=== PATIENT | male | born 1950 | race Caucasian/White ===

== ENCOUNTER 2016-04-28 12:47 | Emergency (ER) | payer SELFPAY | END 2016-04-28 13:20 | disposition left against medical advice (07) | LOC: ED 12:47 | DX: Z53.21 Procedure and treatment not carried out due to patient leaving prior to being seen by health care provider (principal) ==

== ENCOUNTER 2016-06-01 06:57 | Inpatient (IN) | payer OTHER ==
[2016-06-01] MEDS ORDERED: NACL BACTERIOSTATIC INFILTRATI ONE (08:24)
--- NOTE | 2016-06-01 08:29 | Anesthesia Day of Surgery ---
Anesthesia Day of Surgery - Day of Surgery Patient Examined: Yes Patient H&P Reviewed: Yes Patient is NPO: Yes
--- NOTE | 2016-06-01 08:33 | Anesthesia Consultation ---
Anesthesia Consult and Med Hx Date of service: 06/01/16 - Airway Anesthetic Teeth Evaluation: Good, Chipped ROM Head & Neck: Adequate Mental/Hyoid Distance: Adequate Mallampati Class: Class II Intubation Access Assessment: Probably Good - Pulmonary Exam CTA: Yes - Cardiac Exam Cardiac Exam: RRR - Pre-Operative Health Status ASA Pre-Surgery Classification: ASA2 Proposed Anesthetic Plan: General - Pre-Anesthesia Comment Pre-Anesthesia Comments: Patient with elevated BP not diagnosed. Patient reports he has not seen a primary care physician in 5 years, he is scheduled to do his physical in June 2016. Dr. Mendenhall is aware, he will keep patient overnight and will consult the hospitalist. Patient refuses blood transfusion. - Pulmonary Hx Smoking: No - Cardiovascular System Hx Hypertension: Yes (ELEVATES WITH STRESS/ NOT DIAGNOSED) - Central Nervous System Hx Psychiatric Problems: No - Endocrine Hx Renal Disease: No (BPH) - Other Systems Hx Alcohol Use: No Hx Substance Use: No Hx Cancer: No
[2016-06-01] MEDS ORDERED: ZOFRAN IV PRN ×2 (08:34→11:51)
[2016-06-01] MEDS ORDERED: DILAUDID IV PRN (08:34)
[2016-06-01 08:45] LABS: Basophils % (Auto) 1.2 % (0.0-1.8); Eosinophils % (Auto) 0.9 % (0.0-4.3); Hematocrit 31.4 % (35.5-45.6); Hemoglobin 10.6 gm/dl (11.8-15.2); Mean Corpuscular HGB Conc 34 % (32-34); Mean Corpuscular Hemoglobin 30 pg (28-32); Mean Corpuscular Volume 88 fl (84-94); Platelet Count 525 K/mm3 (140-440); Red Blood Count 3.56 M/mm3 (3.65-5.03); Red Cell Distribution Width 14.7 % (13.2-15.2); White Blood Count 11.3 K/mm3 (4.5-11.0)
[2016-06-01] MEDS ORDERED: VERSED IV NR (09:00)
[2016-06-01] MEDS ORDERED: PEPCID IV NR (09:00)
[2016-06-01] MEDS: APRESOLINE IV PRN ×2 (09:00→12:00)
[2016-06-01] MEDS ORDERED: NACL 0.9% 1000 ML 1,000 ML IV SCH (09:00)
[2016-06-01 09:08] LABS: BUN/Creatinine Ratio 16.45; Calcium 9.1 mg/dL (8.4-10.2); Chloride 105.1 mmol/L (98-107); Potassium 4.4 mmol/L (3.6-5.0)
[2016-06-01] MEDS ORDERED: NACL 0.9% 500 ML 500 ML IV ONE ×3 (09:09→10:59)
[2016-06-01] MEDS ORDERED: GARAMYCIN/NS 120MG/100ML 120 MG/100 ML BAG IV NR (09:15)
[2016-06-01] MEDS ORDERED: ANCEF/STERILE WATER 2 GM/20 ML IV NR (09:15)
[2016-06-01] MEDS ORDERED: DIPRIVAN 10 MG/ML IV ONE (09:44)
[2016-06-01] MEDS ORDERED: SUBLIMAZE ONE (09:45)
[2016-06-01] MEDS ORDERED: XYLOCAINE MPF 2% ONE (09:45)
[2016-06-01] MEDS ORDERED: NORMODYNE IV ONE (10:02)
[2016-06-01] MEDS ORDERED: ZOFRAN ONE ×2 (10:16→11:19)
[2016-06-01] MEDS ORDERED: SORBITOL-MANNITOL IRRIG IR ONE ×3 (10:27)
[2016-06-01] MEDS ORDERED: WATER FOR IRRIG STERILE IR ONE ×2 (10:27)
[2016-06-01] MEDS ORDERED: LASIX ONE (11:19)
[2016-06-01] MEDS ORDERED: NORCO 5/325 PO PRN (11:51)
[2016-06-01] MEDS ORDERED: TYLENOL PO PRN (11:51)
[2016-06-01] MEDS ORDERED: MORPHINE IV PRN (11:51)
[2016-06-01] MEDS ORDERED: NARCAN 0.4 MG/1 ML IV PRN (11:51)
[2016-06-01] MEDS ORDERED: AMBIEN PO PRN (11:51)
--- NOTE | 2016-06-01 11:51 | Post Operative Note ---
Pre-op diagnosis: AUR Post-op diagnosis: same Findings: large vascular gland Procedure: cuysto turp Anesthesia: GETA Surgeon: JOHANN WEI Estimated blood loss: other (150) Pathology: list (chips) Specimen disposition: to lab Condition: stable Disposition: PACU
[2016-06-01] MEDS ORDERED: D5W/0.45% NACL/KCL 20 MEQ 20 MEQ/1,000 ML BAG IV SCH (12:00)
[2016-06-01] MEDS: NACL 0.9% IR SCH ×8 (12:30→14:01)
--- NOTE | 2016-06-01 12:36 | Post Anesthesia Evaluation ---
- Post Anesthesia Evaluation Patient Participated: Yes Airway Patent: Yes Stable Respiratory Function: Yes Nausea/Vomiting: No Temp > 96.8F: Yes Pain Manageable: Yes Adequeate Hydration: Yes Anesthesia Complications: No Block Receding Appropriately: Not Applicable Patient on Ventilator: No
[2016-06-01 13:03] LABS: Eosinophils % (Auto) 0.5 % (0.0-4.3); Hematocrit 35.6 % (35.5-45.6); Hemoglobin 11.6 gm/dl (11.8-15.2); Mean Corpuscular HGB Conc 33 % (32-34); Mean Corpuscular Hemoglobin 29 pg (28-32); Mean Corpuscular Volume 89 fl (84-94); Platelet Count 477 K/mm3 (140-440); Red Blood Count 3.98 M/mm3 (3.65-5.03); Red Cell Distribution Width 14.4 % (13.2-15.2); White Blood Count 11.4 K/mm3 (4.5-11.0)
--- NOTE | 2016-06-01 13:04 | Operative Report ---
PREOPERATIVE DIAGNOSES: Urinary retention, chronic renal insufficiency, and anemia. POSTOPERATIVE DIAGNOSES: Urinary retention, chronic renal insufficiency, and anemia. PROCEDURE: Cystoscopy, transurethral resection of prostate. SURGEON: Bebeto Mendenhall MD ANESTHESIA: General. FINDINGS: This is a gentleman who failed voiding trials, has a very high voiding pressure. He now presents for TURP. His creatinine was up to 4. He says he has been catheterizing, is down to about 3.1 that correlates with his blood pressure that has been out of control and he did not seek attention. I spoke to Dr. Starks before the surgery, he said to go ahead and he will be managing the patient. DESCRIPTION OF PROCEDURE: The patient was brought to the operating room and placed on the operating table. Following the induction of anesthesia, placed in lithotomy position, prepped and draped in usual sterile fashion. The prostate was quite inflamed from the catheterization. Bladder was 3+ trabeculated. The middle lobe was resected and hemostasis was excellent. We resected the right lobe and then the left lobe, just giving him a channel. Resection time was approximately 40 minutes. We then used the ball for about 25 minutes and put a [address] catheter[address] This was after all the chips were evacuated out. He had a very vascular gland. We started with hemoglobin of 10. We gave him 2 units to prevent severe anemia. The patient tolerated the procedure well. Estimated blood loss approximately 150-200 mL and after we put the catheter, so we replaced the scope under direct vision, there was no active bleeding, just some oozing and we made sure we cauterized all the areas. A 3-way 26 was draining perfectly clear with no traction. He was brought to recovery in stable condition. Family notified. JOB# [id number] HARMAN/KRISHNA
[2016-06-01 13:17] LABS: Albumin 3.2 g/dL (3.9-5); Bilirubin,Total 0.5 mg/dL (0.1-1.2); Calcium 8.4 mg/dL (8.4-10.2); Chloride 103.7 mmol/L (98-107); Potassium 4.2 mmol/L (3.6-5.0); Total Protein 6.5 g/dL (6.3-8.2)
--- NOTE | 2016-06-01 15:01 | Admit Criteria Form ---
Admission Criteria Documentation: AMBULATORY SURGERY EXCEPTION CRITERIA Ambulatory Surgery Exception Criteria ( Place 'X' for any and all applicable criteria): Surgery or procedure performed on ambulatory basis may require inpatient stay for[A] ANY ONE of the following(1)(2)(3)(4)(5)(6)(7)(8)(9): [X] I. A preoperative situation, condition, or finding that warrants inpatient stay as indicated by ANY ONE of the following: [X] a) Inpatient care needed because of severity of a disease or condition rather than the surgery (eg, severe cardiac or respiratory disease, severe infection) (15) (16 ) (17) (18) [] b) Emergent procedure (eg, angioplasty for acute ischemia)(19) [] c) Complex surgical approach or situation as indicated by ANY ONE of the following(3): [] i) Open approach needed instead of usual endoscopic, transcatheter, or other less invasive procedure [] ii) Difficult approach because of previous operation [] iii) Airway monitoring required after open neck procedures(20)(21) [] iv) Large mass requiring unusually extensive dissection [] v) Additional complicating feature requiring inpatient care (eg, drain management)(22(23): [] d) Major surgery in a pt with high anesthetic risk as indicated by ANY ONE of the following (2)(3)(5)(7)(8): [] i) ASA risk class III or higher (severe systemic disease impairing function) [D] [] ii) Advanced age (eg, older than 85 years)(14)(24) [] iii) Symptomatic heart failure(25) [] iv) Symptomatic asthma or COPD(8)(21) [] v) Morbid obesity with hemodynamic or respiratory problems(20)( 21)(26)(27) [] vi) Obstructive sleep apnea(20)(21) [] vii) Former premature infants who are younger than 60 weeks [] viii) High risk for severe postoperative abnormalities (eg, severe postoperative hypocalcemia after parathyroidectomy for severe hyperparathyroidism)(27)( 28) [] ix) Unstable angina(25) [] e) Drug-related risk requiring inpatient stay as indicated by ANY ONE of the following(5)(10)(14)(32)(33) [] i) Procedure requires discontinuing drugs or other therapy (eg , antiarrhythmic medication, antiseizure medication), which necessitates inpatient observation or treatment.(18)(31) [] ii) Major surgery and high risk drug use as indicated by ANY ONE of the following: [] 1) Active abuse of cocaine or similar drug [] 2) Monoamine oxidase inhibitor use [] 3) Other drug identified as posing risk [] f) Inadequate outpatient care situation as indicated by ANY ONE of the following(5)(10)(14)(32)(33) [] i) Patient lives remote from medical facility and procedure has urgent complication potential, and temporary nearby residence cannot be arranged [] ii) Patient will have postprocedure incapacitation and inadequate assistance at home, or alternative level of care cannot be arranged. [] iii) Patient will have long general anesthesia or procedure side effect resolution time, and competent person to stay with patient on first postoperative night at home or alternative level of care cannot be arranged. []iv) Other inadequate outpatient situation that cannot be handled by other means [] II. A perioperative event, condition, or finding that warrants inpatient stay as indicated by ANY ONE of the following (1)(2)(3): [] a) Inadequate physiologic recovery: cardiovascular, respiratory, or hemodynamic status not normal or near preoperative baseline(18) [] b) Hemodynamic instability [] c) Patient not alert with near normal or baseline mental status [] d) Temperature not normal or as expected and not appropriate for outpatient treatment of condition [] e) Ambulatory or appropriate activity level status not yet achieved post procedure [E](34)(35)(36) [] f) Operative site not appropriate (eg, unexpected or excessive drainage or bleeding) [] g) Postoperative effects not resolved or adequately managed (eg, significant pain or vomiting not appropriate for outpatient or next level of care)(10)(12) [] h) Complicating features requiring inpatient care as indicated by ANY ONE of the following(37): [] i) Severe complications of procedure (eg, bowel injury, airway compromise, vascular injury,severe hemorrhage) [] ii) Extensive (eg, dissection far beyond usual scope of procedure ) or prolonged (eg, 120 minutes beyond usual) surgery needed requiring inpatient postoperative care [] iii) Conversion to an open or complex procedure that requires inpatient care (eg, open vs laparoscopic cholecystectomy, abdominal vs vaginal hysterectomy)(38) [] iv) Comorbid condition or test result identified during or post procedure that requires inpatient care (7) [] v) Malignant hyperthermia(30) [] vi) Other complicating feature requiring inpatient care(22)(23) Inpatient stay may be needed until ALL of the following are present (1)(2)(3)(4) (5)(6)(10)(14)(33)(40): []a) Physiologic recovery: cardiovascular, respiratory, and hemodynamic status normal or near preoperative baseline []b) Hemodynamic stability []c) Patient alert, with near normal or baseline mental status []d) Temperature appropriate: patient afebrile or temperature appropriate for outpt treatment of condition []e) Activity level appropriate: ambulatory or appropriate activity level post procedure []f) Operative site appropriate as indicated by ALL of the following: []i) Site dry or with expected drainage []ii) Any blood noted is as expected for procedure. []g) Postoperative effects resolved or managed as indicated by ALL of the following: []i) Pain management appropriate for outpatient (or next level of) care(10) []ii) Minimal nausea and vomiting: if present, successfully treated with oral medication(12) []iii) Headache, dizziness, or drowsiness (if present) are mild. []h) Voiding status acceptable as indicated by ANY ONE of the following: []i) Voiding spontaneously []ii) No voiding but instructions given for follow-up in 6 to 8 hours []iii) Urinary catheter in place, and instructions given for follow-up []i) Complicating features requiring inpatient care manageable at a lower level of care(37) []j) Comorbid conditions manageable at a lower level of care(37) The original [employer] content created by [employer] has been revised. The portions of the content which have been revised are identified through the use of italic text or in bold, and [employer] has neither reviewed nor approved the modified material. All other unmodified content is copyright [employer]. Please see references footnoted in the original [employer] edition 2016 Admission Criteria Met: Yes
--- NOTE | 2016-06-01 21:51 | Consultation ---
History of Present Illness - Reason for Consult Consult date: 06/01/16 Management of high BP Requesting physician: JOHANN WEI - History of Present Illness S/p AUR for enlarged prostate - being seen for high BP readings perioperatively.Postop BP has been in normal range. Past History Past Medical History: other (BPH) Past Surgical History: TURP Social history: lives with family Family history: no significant family history Medications and Allergies Allergies Allergy/AdvReac Type Severity Reaction Status Date / Time No Known Allergies Allergy Verified 06/01/16 08:21 Home Medications Medication Instructions Recorded Confirmed Last Taken Type Ciprofloxacin (Nf) [Cipro] 1 tab PO BID 05/29/16 06/01/16 05/31/16 History Multivitamin Tab [Multiple Vitamin 1 each PO QDAY 05/29/16 06/01/16 05/30/16 History TAB (Theragran)] Tamsulosin HCl [Tamsulosin HCl] 1 tab PO DAILY 05/29/16 06/01/16 05/30/16 History Active Meds: Active Medications Acetaminophen (Tylenol) 650 mg PO Q4H PRN PRN Reason: Pain, Mild (1-3)/Fever > 100.5 Acetaminophen/Hydrocodone Bitart ([place] 5/325) 2 each PO Q4H PRN PRN Reason: Pain, Moderate (4-6) Cefazolin Sodium (Ancef/Sterile Water 2 Gm/20 Ml) 2 gm IV PREOP NR Stop: 06/01/16 23:59 Docusate Sodium (Colace) 100 mg PO BID MATTHEW Hydralazine HCl (Apresoline) 10 mg IV Q30MIN PRN PRN Reason: Hypertension Last Admin: 06/01/16 12:00 Dose: 10 mg Sodium Chloride (Nacl 0.9% 1000 Ml) 1,000 mls @ 75 mls/hr IV DIRECT MATTHEW Last Admin: 06/01/16 08:59 Dose: 75 mls/hr Gentamicin Sulfate/Sodium Chloride (Garamycin/Ns 120mg/100ml) 120 mg in 100 mls @ 200 mls/hr IV ONCE NR Stop: 06/01/16 23:59 Cefazolin Sodium (Ancef/Ns 1 Gm/50 Ml) 1 gm in 50 mls @ 100 mls/hr IV Q8H MATTHEW Stop: 06/02/16 02:29 Potassium Chloride/Dextrose/Sod Cl (D5w/0.45% Nacl/Kcl 20 Meq) 20 meq in 1,000 mls @ 125 mls/hr IV DIRECT MATTHEW Midazolam HCl (Versed) 2 mg IV PREOP NR Stop: 06/01/16 23:59 Last Admin: 06/01/16 09:08 Dose: 2 mg Morphine Sulfate (Morphine) 2 mg IV Q4H PRN PRN Reason: Pain, Moderate (4-6) Naloxone HCl (Narcan 0.4 Mg/1 Ml) 0.1 mg IV Q2MIN PRN PRN Reason: Res Rate </= 8 or 02 SAT < 92% Ondansetron HCl (Zofran) 4 mg IV Q8H PRN PRN Reason: Nausea And Vomiting Sodium Chloride (Nacl 0.9%) 2,000 ml IR DIRECT MATTHEW Last Admin: 06/01/16 14:01 Dose: 2,000 ml Zolpidem Tartrate (Ambien) 5 mg PO QHS PRN PRN Reason: Sleep Review of Systems All systems: negative Exam - Constitutional Vitals: Temp Pulse Resp BP Pulse Ox 97.7 F 84 14 134/80 98 06/01/16 14:35 06/01/16 14:35 06/01/16 14:35 06/01/16 14:35 06/01/16 21:46 General appearance: Present: no acute distress, well-nourished - EENT Eyes: Present: PERRL ENT: hearing intact, clear oral mucosa - Neck Neck: Present: supple, normal ROM - Respiratory Respiratory effort: normal Respiratory: bilateral: CTA - Cardiovascular Heart Sounds: Present: S1 & S2. Absent: rub, click - Extremities Extremities: pulses symmetrical, No edema Peripheral Pulses: within normal limits - Abdominal General gastrointestinal: Present: soft, non-tender, non-distended, normal bowel sounds Male genitourinary: Present: normal - Integumentary Integumentary: Present: clear, warm, dry - Musculoskeletal Musculoskeletal: gait normal, strength equal bilaterally - Psychiatric Psychiatric: appropriate mood/affect, intact judgment & insight - Neurologic Neurologic: CNII-XII intact, moves all extremities Results - Labs CBC & Chem 7: 06/01/16 12:50 06/01/16 12:50 Labs: Abnormal lab results 06/01/16 06/01/16 06/01/16 Range/Units 08:30 08:30 09:15 WBC 11.3 H (4.5-11.0) K/mm3 RBC 3.56 L (3.65-5.03) M/mm3 Hgb 10.6 L (11.8-15.2) gm/dl Hct 31.4 L (35.5-45.6) % Plt Count 525 H (140-440) K/mm3 Lymph % (Auto) 6.8 L (13.4-35.0) % Lymph # 0.8 L (1.2-5.4) K/mm3 Seg Neutrophils % 85.7 H (40.0-70.0) % Seg Neutrophils # 9.7 H (1.8-7.7) K/mm3 Carbon Dioxide 21 L (22-30) mmol/L BUN 51 H (9-20) mg/dL Creatinine 3.1 H (0.8-1.5) mg/dL Glucose 103 H (75-100) mg/dL Albumin (3.9-5) g/dL Crossmatch See Detail 06/01/16 06/01/16 Range/Units 12:50 12:50 WBC 11.4 H (4.5-11.0) K/mm3 RBC (3.65-5.03) M/mm3 Hgb 11.6 L (11.8-15.2) gm/dl Hct (35.5-45.6) % Plt Count 477 H (140-440) K/mm3 Lymph % (Auto) 12.9 L (13.4-35.0) % Lymph # (1.2-5.4) K/mm3 Seg Neutrophils % 78.9 H (40.0-70.0) % Seg Neutrophils # 9.0 H (1.8-7.7) K/mm3 Carbon Dioxide 21 L (22-30) mmol/L BUN 48 H (9-20) mg/dL Creatinine 3.0 H (0.8-1.5) mg/dL Glucose 143 H (75-100) mg/dL Albumin 3.2 L (3.9-5) g/dL Crossmatch Assessment and Plan - Patient Problems (1) BPH (benign prostatic hyperplasia) Current Visit: Yes Status: Chronic Qualifiers: Prostatic enlargement morphology: non-nodular Lower urinary tract symptom presence: symptoms present Qualified Code(s): N40.1 - Benign prostatic hyperplasia with lower urinary tract symptoms Plan to address problem: Patient had AUR.Postop doing well. (2) HTN (hypertension) Current Visit: Yes Status: Acute Qualifiers: Hypertension type: unspecified secondary hypertension Qualified Code(s): I15.9 - Secondary hypertension, unspecified; I15 - Secondary hypertension Plan to address problem: Sec to stress of surgery and pain.BP has come down to 134/80 postop.No need for BP meds at this point.Will reevaluate and add antihypertensives if necessary. (3) CKD (chronic kidney disease) stage 4, GFR 15-29 ml/min Current Visit: Yes Status: Chronic Plan to address problem: Needs followup with Embedded Linux Developer.Patient advised. (4) DVT prophylaxis Current Visit: Yes Status: Acute Plan to address problem: On SCD's
[2016-06-01] MEDS: COLACE PO SCH (22:00)
[2016-06-02] MEDS: ANCEF/NS 1 GM/50 ML 1 GM/50 ML BAG IV SCH ×3 (02:00→11:05)
[2016-06-02 05:06] LABS: Basophils % (Auto) 0.7 % (0.0-1.8); Eosinophils % (Auto) 0.6 % (0.0-4.3); Hematocrit 29.3 % (35.5-45.6); Hemoglobin 9.9 gm/dl (11.8-15.2); Mean Corpuscular HGB Conc 34 % (32-34); Mean Corpuscular Hemoglobin 30 pg (28-32); Mean Corpuscular Volume 88 fl (84-94); Platelet Count 405 K/mm3 (140-440); Red Blood Count 3.35 M/mm3 (3.65-5.03); Red Cell Distribution Width 14.6 % (13.2-15.2); White Blood Count 13.5 K/mm3 (4.5-11.0)
[2016-06-02 05:20] LABS: BUN/Creatinine Ratio 15.71; Calcium 7.8 mg/dL (8.4-10.2); Chloride 104.1 mmol/L (98-107); Potassium 3.9 mmol/L (3.6-5.0)
--- NOTE | 2016-06-02 08:33 | Progress Note ---
Assessment and Plan Assessment and plan: (1) BPH (benign prostatic hyperplasia) Current Visit: Yes Status: Chronic Qualifiers: Prostatic enlargement morphology: non-nodular Lower urinary tract symptom presence: symptoms present Qualified Code(s): N40.1 - Benign prostatic hyperplasia with lower urinary tract symptoms Plan to address problem: Patient had AUR. Postop doing well. (2) HTN (hypertension) Current Visit: Yes Status: Acute Qualifiers: Hypertension type: unspecified secondary hypertension Qualified Code(s): I15.9 - Secondary hypertension, unspecified; I15 - Secondary hypertension Plan to address problem: BP elevated this am will add coreg BID at low dose (3) CKD (chronic kidney disease) stage 4, GFR 15-29 ml/min Current Visit: Yes Status: Chronic Plan to address problem: Needs followup with Logistics Program Manager out patient (4) DVT prophylaxis Current Visit: Yes Status: Acute Plan to address problem: On SCD's History Interval history: Patient seen and examined. Medical records and medication list reviewed. No acute event overnight noted by the RN. Patient denies any chest pain or difficulty breathing. Patient is tolerating diet. BP noted to be elevated this morning. Discussed plan of care at bedside with patient. Hospitalist Physical - Physical exam Narrative exam: GENERAL: well-developed and well-nourished white male lying on bed appeared to be in no discomfort. HEENT: Normocephalic. Atraumatic. No conjunctival congestion or icterus. Patient has moist mucous membranes. NECK: Supple. Trachea midline. CHEST/LUNGS: Clear to auscultated bilaterally, breathing nonlabored. No wheezes crackles or rhonchi. HEART/CARDIOVASCULAR: Regular in rate and rhythm. S1 and S2 positive. ABDOMEN: Abdomen is soft, Carter in place. Patient has normal bowel sounds. SKIN: There is no rash. Warm and dry. NEURO: No focal motor deficit. Follows command. MUSCULOSKELETAL: No joint effusion or tenderness. EXTRIMITY: No edema, no cyanosis or clubbing. PSYCH: Cooperative. - Constitutional Vitals: Temp Pulse Resp BP Pulse Ox 97.7 F 80 20 160/97 96 06/02/16 08:00 06/02/16 08:00 06/02/16 08:00 06/02/16 08:00 06/02/16 08:00 General appearance: Present: no acute distress, well-nourished Results - Labs CBC & Chem 7: 06/02/16 04:18 06/02/16 04:18 Labs: Laboratory Last Values WBC 13.5 K/mm3 (4.5-11.0) H 06/02/16 04:18 RBC 3.35 M/mm3 (3.65-5.03) L 06/02/16 04:18 Hgb 9.9 gm/dl (11.8-15.2) L 06/02/16 04:18 Hct 29.3 % (35.5-45.6) L D 06/02/16 04:18 MCV 88 fl (84-94) 06/02/16 04:18 MCH 30 pg (28-32) 06/02/16 04:18 MCHC 34 % (32-34) 06/02/16 04:18 RDW 14.6 % (13.2-15.2) 06/02/16 04:18 Plt Count 405 K/mm3 (140-440) 06/02/16 04:18 Lymph % (Auto) 8.8 % (13.4-35.0) L 06/02/16 04:18 [place] % (Auto) 7.4 % (0.0-7.3) H 06/02/16 04:18 Eos % (Auto) 0.6 % (0.0-4.3) 06/02/16 04:18 Baso % (Auto) 0.7 % (0.0-1.8) 06/02/16 04:18 Lymph # 1.2 K/mm3 (1.2-5.4) 06/02/16 04:18 [place] # 1.0 K/mm3 (0.0-0.8) H 06/02/16 04:18 Eos # 0.1 K/mm3 (0.0-0.4) 06/02/16 04:18 Baso # 0.1 K/mm3 (0.0-0.1) 06/02/16 04:18 Seg Neutrophils % 82.5 % (40.0-70.0) H 06/02/16 04:18 Seg Neutrophils # 11.2 K/mm3 (1.8-7.7) H 06/02/16 04:18 Sodium 138 mmol/L (137-145) 06/02/16 04:18 Potassium 3.9 mmol/L (3.6-5.0) 06/02/16 04:18 Chloride 104.1 mmol/L (98-107) 06/02/16 04:18 Carbon Dioxide 18 mmol/L (22-30) L 06/02/16 04:18 Anion Gap 20 mmol/L 06/02/16 04:18 BUN 44 mg/dL (9-20) H 06/02/16 04:18 Creatinine 2.8 mg/dL (0.8-1.5) H 06/02/16 04:18 Estimated GFR 27 ml/min 06/02/16 04:18 BUN/Creatinine Ratio 15.71 % 06/02/16 04:18 Glucose 95 mg/dL (75-100) 06/02/16 04:18 Calcium 7.8 mg/dL (8.4-10.2) L 06/02/16 04:18 Total Bilirubin 0.5 mg/dL (0.1-1.2) 06/01/16 12:50 AST 11 units/L (5-40) 06/01/16 12:50 ALT 18 units/L (7-56) 06/01/16 12:50 Alkaline Phosphatase 73 units/L (35-129) 06/01/16 12:50 Total Protein 6.5 g/dL (6.3-8.2) 06/01/16 12:50 Albumin 3.2 g/dL (3.9-5) L 06/01/16 12:50 Albumin/Globulin Ratio 1.0 % 06/01/16 12:50 Blood Type A NEGATIVE 06/01/16 09:15 Antibody Screen Negative 06/01/16 09:15 Crossmatch See Detail 06/01/16 09:15
[2016-06-02] MEDS ORDERED: COREG PO SCH (10:00)
[2016-06-02] MEDS ORDERED: ANCEF/NS 1 GM/50 ML 1 GM/50 ML BAG IV ONE (10:47)
[2016-06-02] MEDS: COLACE PO SCH (11:04)
[2016-06-02] MEDS ORDERED: NACL 0.9% 1,000 ML IR ONE (11:49)
--- NOTE | 2016-06-02 11:56 | Progress Note ---
Assessment and Plan cath irrigated clear home today with cath Subjective Date of service: 06/02/16 Principal diagnosis: AUR Objective - Constitutional Vitals: Vital Signs - 12hr 06/02/16 06/02/16 06/02/16 00:00 04:00 08:00 Temperature 98.3 F 98.1 F 97.7 F Pulse Rate [ 83 88 80 Right Brachial] Respiratory 18 18 20 Rate Blood Pressure 136/78 144/89 160/97 [Right Arm] O2 Sat by Pulse 97 97 96 Oximetry 06/02/16 10:00 Temperature Pulse Rate [ Right Brachial] Respiratory Rate Blood Pressure [Right Arm] O2 Sat by Pulse 96 Oximetry General appearance: Present: no acute distress - Neck Neck: supple - Respiratory Respiratory effort: normal Extremities: no ischemia - Gastrointestinal General gastrointestinal: Present: soft, non-tender - Labs CBC & Chem 7: 06/02/16 04:18 06/02/16 04:18 Labs: Abnormal lab results 06/01/16 06/01/16 06/01/16 Range/Units 09:15 12:50 12:50 WBC 11.4 H (4.5-11.0) K/mm3 RBC (3.65-5.03) M/mm3 Hgb 11.6 L (11.8-15.2) gm/dl Hct (35.5-45.6) % Plt Count 477 H (140-440) K/mm3 Lymph % (Auto) 12.9 L (13.4-35.0) % [place] % (Auto) (0.0-7.3) % [place] # (0.0-0.8) K/mm3 Seg Neutrophils % 78.9 H (40.0-70.0) % Seg Neutrophils # 9.0 H (1.8-7.7) K/mm3 Carbon Dioxide 21 L (22-30) mmol/L BUN 48 H (9-20) mg/dL Creatinine 3.0 H (0.8-1.5) mg/dL Glucose 143 H (75-100) mg/dL Calcium (8.4-10.2) mg/dL Albumin 3.2 L (3.9-5) g/dL Crossmatch See Detail 06/02/16 06/02/16 Range/Units 04:18 04:18 WBC 13.5 H (4.5-11.0) K/mm3 RBC 3.35 L (3.65-5.03) M/mm3 Hgb 9.9 L (11.8-15.2) gm/dl Hct 29.3 L D (35.5-45.6) % Plt Count (140-440) K/mm3 Lymph % (Auto) 8.8 L (13.4-35.0) % [place] % (Auto) 7.4 H (0.0-7.3) % [place] # 1.0 H (0.0-0.8) K/mm3 Seg Neutrophils % 82.5 H (40.0-70.0) % Seg Neutrophils # 11.2 H (1.8-7.7) K/mm3 Carbon Dioxide 18 L (22-30) mmol/L BUN 44 H (9-20) mg/dL Creatinine 2.8 H (0.8-1.5) mg/dL Glucose (75-100) mg/dL Calcium 7.8 L (8.4-10.2) mg/dL Albumin (3.9-5) g/dL Crossmatch
--- NOTE | 2016-06-02 11:59 | Discharge Summary ---
Short Stay Discharge Plan Activity: other (no straining ) Weight Bearing Status: Full Weight Bearing Diet: low fat, low cholesterol, low salt Special Instructions: other (teach segura care ) Durable Medical Equipment Needed Upon Discharge: other (segura ) Follow up with: PRIMARY CARE, [Primary Care Provider] - 7 Days JOHANN WEI MD [Staff Physician] - 7 Days
[2016-06-02] MEDS ORDERED: APRESOLINE IM ONE (16:06)
[2016-06-02 16:17] VITALS: BP 178/111
== END 2016-06-02 16:40 | disposition home or self-care (01) | DRG 713 ==
LOC: 3A 07:06 → EDSTATUS 09:00 → 2B-SURG 12:29
PROVIDERS: ADMIT Urology; ATTEND Urology
PROC: 0VT08ZZ Resection of Prostate, Via Natural or Artificial Opening Endoscopic (ICD-10-PCS; principal; 2016-06-01)
PROC: 30233N1 Transfusion of Nonautologous Red Blood Cells into Peripheral Vein, Percutaneous Approach (ICD-10-PCS; 2016-06-01)
DX: N40.1 Benign prostatic hyperplasia with lower urinary tract symptoms (principal); N18.4 Chronic kidney disease, stage 4 (severe); I12.9 Hypertensive chronic kidney disease with stage 1 through stage 4 chronic kidney disease, or unspecified chronic kidney disease; R33.9 Retention of urine, unspecified; D64.9 Anemia, unspecified
CPT/HCPCS: 36415; 80048; 80053; 85025; 86850; 86900; 86901; 86920; 88305; A4217; J0360; J0690; J1170; J1580; J1940; J2250; J2405; J2704; J3010; J7030; P9016